=== PATIENT | female | born 1985 | race Caucasian/White ===

== ENCOUNTER 2022-03-30 14:15 | Outpatient (CLI) | payer OTHER | END 2022-03-30 14:27 | disposition home or self-care (01) | LOC: RAD 14:15 | PROVIDERS: ATTEND Urology | DX: N20.1 Calculus of ureter (principal) ==

== ENCOUNTER 2022-04-04 13:45 | Outpatient (CLI) | payer OTHER | END 2022-04-04 13:55 | disposition home or self-care (01) | LOC: TOM 13:45 | PROVIDERS: ATTEND Urology | DX: N20.1 Calculus of ureter (principal) ==

== ENCOUNTER 2023-06-22 07:40 | Day surgery (SDC) | payer OTHER ==
[2023-06-19 09:50] LABS: URINE APPEARANCE Clear; URINE BILIRRUBIN Negative (NEGATIVE); URINE BLOOD Negative; URINE COLOR Yellow; URINE GLUCOSE Negative (NEGATIVE); URINE LEUKOCYTE Negative; URINE NITRATE Negative; URINE PROTEIN Negative (NEGATIVE); URINE UROBILINOGEN 0.2 E.U./dl
[2023-06-19 09:52] LABS: HEMATOCRIT 37.2 % (36.0-45.00); HEMOGLOBIN 12.6 g/dL (12.0-15.00); MEAN CELL VOLUME 81.3 fL (80.00-100.00); MEAN CORPUSCULAR HEMOGLOBIN 27.6 pg (27.00-32.0); MEAN CORPUSCULAR HGB CONC 33.9 g/dl (32.0-36.0); PLATELET COUNT 277 K/uL (150-450); RED BLOOD COUNT 4.58 M/uL (4.00-6.00)
[2023-06-19 09:57] LABS: URINE BACTERIA 138.5 uL (0.0-1933); URINE EPITHELIAL CELLS 4.9 uL (0.0-38.8); URINE RBC 29.6 uL (0.0-20.8); URINE WBC 3.7 uL (0.0-23.2)
[2023-06-19 10:21] LABS: INR 0.98; PARTIAL THROMBOPLASTIN TIME 29.6 SECONDS (22.0-34.0); PROTHROMBIN TIME 10.3 SECONDS (9.0-11.5)
[2023-06-19 10:26] LABS: ALBUMIN 3.4 gm/dL (3.4-5.0); BILIRUBIN TOTAL 0.46 mg/dL (0.3-1.2); CREATININE SERUM 0.65 mg/dL (0.55-1.02); GFR 101.47; POTASSIUM 3.77 mEq/L (3.5-5.1); TOTAL PROTEIN 7.4 gm/dL (6.4-8.2)
== END 2023-06-22 15:50 | disposition home or self-care (01) ==
LOC: CIR.AMB 07:40
PROVIDERS: ATTEND Orthopaedic Surgery
DX: M24.822 Other specific joint derangements of left elbow, not elsewhere classified (principal); M67.932 Unspecified disorder of synovium and tendon, left forearm; Z20.822 Contact with and (suspected) exposure to COVID-19; I10 Essential (primary) hypertension